=== PATIENT | male | born 1995 | race Hispanic/Latino ===

== ENCOUNTER 2023-01-20 18:39 | Emergency (ER) | payer OTHER ==
[2023-01-20 20:16] LABS: #Monocytes 0.2 10x3/uL (0.0-1.1); %Basophils 0.8 % (0.0-2.0); %Lymphocytes 17.6 % (18.0-47.0); %Monocytes 4.4 % (0.0-10.0); %Neutrophils 76.8 % (40.0-75.0); Hemoglobin 13.9 g/dL (13.5-17.5); Mean Corpuscular HGB CONC 35.7 g/dL (32.0-36.0); Mean Corpuscular Hemoglobin 30.3 pg (27.0-33.0); Mean Corpuscular Volume 84.7 fl (81.2-95.1); Mean Platelet Volume 11.1 fl (7.4-10.4); Platelet Count 207 10x3/uL (150-450); RBC Distribution Width 11.3 % (11.5-14.5); Red Blood Cell (RBC) Count 4.59 10x6/uL (4.32-5.72); White Blood Cell (WBC) Count 5.2 10x3/uL (3.5-10.5)
[2023-01-20] MEDS ORDERED: Dexamethasone 4 mg/ml Vial ONE (20:21)
[2023-01-20] MEDS ORDERED: Dexamethasone 10 MG/ML VIAL ONE (20:21)
[2023-01-20] MEDS ORDERED: Ketorolac Tromethamine 30 MG/ML VIAL ONE (20:21)
[2023-01-20] MEDS ORDERED: Vancomycin 1 GM VIAL ONE (20:22)
[2023-01-20] MEDS ORDERED: cefTRIAXone (ROCEPHIN) 2 GM VIAL ONE (20:22)
[2023-01-20 20:32] LABS: ALT (SGPT) 123 U/L (8-55); AST (SGOT) 106 U/L (5-34); Albumin 4.1 g/dL (3.5-5.0); Alkaline Phosphatase 89 U/L (40-110); Anion Gap 14 mmol/L (10-20); BUN (Urea Nitrogen) 8 mg/dL (8.9-20.6); Bilirubin, Total 0.8 mg/dL (0.2-1.2); Calc. Creatinine Clearance 0 mL/min (70-130); Calcium 8.8 mg/dL (7.8-10.44); Carbon Dioxide 25 mmol/L (22-29); Chloride 94 mmol/L (98-107); Estimated GFR 82; Glucose 113 mg/dL (70-105); Potassium 3.8 mmol/L (3.5-5.1); Protein, Total 7.1 g/dL (6.0-8.3); Sodium 129 mmol/L (136-145)
[2023-01-20] MEDS ORDERED: Lidocaine 1% (PF) 30 ML VIAL ONE (21:08)
[2023-01-20] MEDS ORDERED: Lorazepam 2 MG/ML VIAL ONE (21:21)
[2023-01-20 22:12] LABS: SARS-CoV-2 NAA Rapid Test Not Detected (NotDetected)
[2023-01-20 23:27] LABS: CSF, Glucose 58 mg/dl (40-70); CSF, Protein 39 mg/dL (15-40)
[2023-01-20 23:42] LABS: Unspun CSF Color COLORLESS (Colorless)
[2023-01-20 23:43] LABS: CSF Source CSF; Clarity Hazy (Clear); Color Of CSF Supernatant COLORLESS (Colorless); Tube # 1; Tube # 4
== END 2023-01-21 00:06 | disposition home or self-care (01) ==
LOC: CSHERS 18:39
DX: R51.9 Headache, unspecified (principal); B34.9 Viral infection, unspecified; F17.210 Nicotine dependence, cigarettes, uncomplicated; Z20.822 Contact with and (suspected) exposure to COVID-19
CPT/HCPCS: 36415; 62270; 80053; 82945; 83605; 84157; 85025; 85652; 86140; 86612; 86635; 86698; 87040; 87070; 87081; 87205; 87255; 87430; 89051; 96365; 96366; 96367; 96375; J0696; J1100; J1885; J2001; J2060; J3370